=== PATIENT | male | born 1960 | race Caucasian/White ===

== ENCOUNTER 2020-10-18 16:05 | Emergency (ER) | payer MEDICAID ==
[~2020-10-18] VITALS: Ht 188 cm; Wt 174.4 kg
--- NOTE | ~2020-10-18 | EMS ---
[address] [place] [address] EMS Patient Care Report Name: ALLAN GAITAN Room: [facility] Leonarda#: [id number] Admission: 10/18/20 Attend Phys: Discharge: 10/18/20 Date of : 56 Report #: [id number] THIS REPORT FOR: //name// Report Transmitted: 10/20/2020 13:13 EMS Care Summary SCOTT العلي Incident [id number] @ 10/18/2020 15:11 Incident [id number] [place] [id number] Patient allan gaitan Male, 60 Years 1960 Patient Address [address] [place] [id number] Patient History Anxiety disorder, unspecified,Unspecified asthma,Gastro-Esophageal Reflux Disease (GERD),Edema, unspecified,Obesity, unspecified,Cellulitis, Patient Allergies , Patient Medications Acetaminophen, Celexa, Neurontin, Furosemide, Metolazone, Nystatin, Chief Complaint Pain-extremity lower Disposition Transported No Lights/[place] Dispatch Reason Sick Person Transported To [facility] Narrative [facility] responded to [facility] for a 61 year old male patient complaining of left leg pain. Upon arrival, the crew made contact with nursing staff who turned over pt paperwork and directed the crew to the [address] [address] EMS Patient Care Report Name: ALLAN GAITAN Room: [facility]#: [id number] Admission: 10/18/20 Attend Phys: Discharge: 10/18/20 Date of : 56 Report #: [id number] patient. The pt was alert and oriented with a GCS of 15, sitting in his wheelchair. The pt was able to ambulate with help from a walker from his wheelchair to the gurney. Pt seated himself on the gurney and was secured with all necessary straps. Pt states that he ahs a history of DVTs and has been having pain in his left leg for the past day. The facility was unable to perform a doppler which is why the pt needed to be transported to the hospital. Inside the ambulance, pt vital signs were monitored and pt history was recorded. Transport went without incident. After arriving at the receiving facility, the pt was moved inside to a room and transferred to the bed. Report was given to the receiving nurse and all required signatures were obtained before clearing the call. Initial Vitals @15:40Pain: 07/15, @15:50Pain: 07/15, @15:41P: 65,R: 18,BP: 152/91, @15:50P: 68,R: 18,BP: 124/99, @15:41GCS: 15, @15:50GCS: 15, Assessments @15:30MENTAL:SKIN:HEENT:LUNG SOUNDS:ABDOMEN:PELVIS//GI:EXTREMITIES:PULSE:NEURO: Impression Acute Pain, not elsewhere classified Timeline 15:30,Call Received 15:11,Dispatch Notified 15:11,Psap Call 15:11,Dispatched 15:11,En Route 15:26,On Scene 15:30,At Patient 15:40,Depart Scene 15:40,BP: / M,PULSE: ,RR: R,SPO2: Ox,ETCO2: ,BG: ,PAIN: 10,GCS: , 15:41,BP: 152/91 M,PULSE: 65,RR: 18 R,SPO2: Ox,ETCO2: ,BG: ,PAIN: ,GCS: , 15:41,BP: / M,PULSE: ,RR: R,SPO2: Ox,ETCO2: ,BG: ,PAIN: ,GCS: 15, 15:50,BP: / M,PULSE: ,RR: R,SPO2: Ox,ETCO2: ,BG: ,PAIN: 10,GCS: , 15:50,BP: 124/99 M,PULSE: 68,RR: 18 R,SPO2: Ox,ETCO2: ,BG: ,PAIN: ,GCS: , 15:50,BP: / M,PULSE: ,RR: R,SPO2: Ox,ETCO2: ,BG: ,PAIN: ,GCS: 15, 16:02,At Destination 16:30,[place] [address] EMS Patient Care Report Name: ALLAN GAITAN [facility] [id number] Admission: 10/18/20 Attend Phys: Discharge: 10/18/20 Date of : 56 Report #: [id number] Disclaimer v1.1 Copyright 202 Chef This EMS Care Summary contains data elements from the applicable legal record (which may be displayed differently). It is designed to provide pertinent information for the following purposes: continuity of care, clinical quality, and state data reporting. The complete legal record is available to ED staff and administrators of the receiving hospital in [employer]'s Patient Tracker. All data is provided "as is."
[2020-10-18] MEDS ORDERED: TYLENOL325 MG PO (16:17)
[2020-10-18] MEDS ORDERED: CELEXA 10 MG TA10 M1 PO (16:18)
[2020-10-18] MEDS ORDERED: BIOFREEZE118 ML TOP (16:18)
[2020-10-18] MEDS ORDERED: GABAPENTIN100 MG PO (16:18)
[2020-10-18] MEDS ORDERED: LASIX 40 MG TAB40 MG PO (16:19)
[2020-10-18] MEDS ORDERED: MOBIC7.5 MG PO (16:20)
[2020-10-18] MEDS ORDERED: METOLAZONE 2.52.5 M1 PO (16:20)
[2020-10-18] MEDS ORDERED: MIRALAX119 GM PO (16:20)
[2020-10-18] MEDS ORDERED: EFFER-K 20 MEQ20 ME1 PO (16:21)
[2020-10-18] MEDS ORDERED: SUPER THERAVIT1 EACH PO (16:21)
[2020-10-18] MEDS ORDERED: NYSTATIN1000000 UN TOP (16:21)
[2020-10-18] MEDS ORDERED: FLOMAX0.4 MG PO (16:22)
[2020-10-18 17:05] LABS: ABSOLUTE EOSINOPHILS 0.3 thou/uL (0.0-0.7); ABSOLUTE LYMPHOCYTES 1.4 thou/uL (0.8-5.3); ABSOLUTE MONOCYTES 0.5 thou/uL (0.0-1.2); ABSOLUTE NEUTROPHILS 2.1 thou/uL (1.6-8.1); BASOPHILS 0.2 %; EOSINOPHILS 7.5 %; HEMATOCRIT 40.9 % (42.0-52.0); HEMOGLOBIN 13.7 gm/dL (14.0-18.0); LYMPHOCYTES 31.8 %; MCHC 33.5 g/dL (28.0-37.0); MCV 92.6 fL (80.0-100.0); MONOCYTES 11.8 %; MPV 7.6 fl. (7.2-11.1); NUCLEATED RBCS 0 /100WBC; PLATELET COUNT* 216 thou/uL (150-400); POLYS 48.7 %; RBC 4.42 mil/uL (4.50-6.00); WBC 4.4 thou/uL (4.0-11.0)
[2020-10-18 17:10] LABS: CALCIUM 8.9 mg/dL (8.5-10.1); CREATININE 0.8 mg/dL (0.6-1.3); POTASSIUM 3.1 mmol/L (3.5-5.1)
[2020-10-18 17:19] LABS: APTT 26.5 Seconds (25.0-31.3); PROTIME 10.3 Seconds (9.20-11.50)
[2020-10-18 18:58] VITALS: BP 114/70
--- NOTE | 2020-10-19 13:38 | EKG ---
[place] [address] ELECTROCARDIOGRAM REPORT Name: ALLAN TOMLINSON [facility] [id number] Admission: 10/18/20 Attend Phys: Discharge: 10/18/20 Date of : 56 Date of Service: 10/18/20 1647 Report #: [id number] THIS REPORT FOR: //name// [facility] ED Test Date: 2020-10-18 Test Time: 16:47:18 Pat Name: ALLAN TOMLINSON Department: Room: Gender: Property Claim Rep: [facility] : 1960 Requested By: Radames Nunez Order Number: [id number] MD: Abimael Esquivel Measurements Intervals [place] Rate: 67 P: 15 [place]: 178 QRS: 51 QRSD: 100 T: 48 QT: 420 QTc: 444 Interpretive Statements Sinus rhythm Low voltage, precordial leads Probable anteroseptal infarct, old Baseline wander in lead(s) V1 No previous ECG available for comparison Electronically Signed On 10-19-2020 13:38:17 RESEARCH TECHNICIAN by Abimael Esquivel [email or web address] <ELECTRONICALLY SIGNED> By: Abimael Esquivel MD, FACC 10/19/20 1338 1647 1647 Abimael Esquivel MD, [facility] /EPI
== END 2020-10-18 19:52 | disposition home or self-care (01) ==
LOC: M.ERS 16:05
PROVIDERS: Nurse Practitioner Psychiatric/Mental Health
DX: U07.1 COVID-19 (principal); M79.662 Pain in left lower leg; E87.6 Hypokalemia; J45.909 Unspecified asthma, uncomplicated; I10 Essential (primary) hypertension; Z79.899 Other long term (current) drug therapy; Z88.0 Allergy status to penicillin; Z88.8 Allergy status to other drugs, medicaments and biological substances

== ENCOUNTER 2020-12-13 11:29 | Inpatient (IN) | payer MEDICAID ==
[~2020-12-13] VITALS: Ht 180.3 cm; Wt 149.7 kg
[~2020-12-13 11:29] MED LIST: BIOFREEZE118 ML TOP; CELEXA 10 MG TA10 M1 PO; EFFER-K 20 MEQ20 ME1 PO; FLOMAX0.4 MG PO; GABAPENTIN100 MG PO; LASIX 40 MG TAB40 MG PO; METOLAZONE 2.52.5 M1 PO; MIRALAX119 GM PO; MOBIC7.5 MG PO; NYSTATIN1000000 UN TOP; SUPER THERAVIT1 EACH PO; TYLENOL325 MG PO
[2020-12-13 11:30] VITALS: BP 109/59
[2020-12-13 11:53] LABS: HEMATOCRIT 44.4 % (42.0-52.0); HEMOGLOBIN 14.8 gm/dL (14.0-18.0); MCH 31.4 pg (26.0-34.0); MCHC 33.4 g/dL (28.0-37.0); MPV 9.6 fl. (7.2-11.1); NUCLEATED RBCS 0 /100WBC; PLATELET COUNT* 164 thou/uL (150-400); RBC 4.72 mil/uL (4.50-6.00); RDW-CV 12.6 % (10.5-14.5); WBC 18.3 thou/uL (4.0-11.0)
[2020-12-13 12:02] LABS: APTT 23.5 Seconds (25.0-31.3); INR 1.4; PROTIME 14.3 Seconds (9.20-11.50)
[2020-12-13 12:26] LABS: CALCIUM 8.7 mg/dL (8.5-10.1); CREATININE 1.3 mg/dL (0.6-1.3); POTASSIUM 3.8 mmol/L (3.5-5.1)
[2020-12-13 12:37] LABS: TOTAL BILIRUBIN 1.2 mg/dL (<0.1-1.0)
[2020-12-13 13:00] LABS: ABSOLUTE LYMPHOCYTES 0.7 thou/uL (0.8-5.3); ABSOLUTE MONOCYTES 0.2 thou/uL (0.0-1.2); ABSOLUTE NEUTROPHILS 17.4 thou/uL (1.6-8.1); PLATELET ESTIMATE ADEQUATE
[2020-12-13 14:09] VITALS: BP 105/55
[2020-12-13 14:39] VITALS: BP 109/63
[2020-12-13 16:40] VITALS: BP 127/69
--- NOTE | 2020-12-13 17:31 | EKG ---
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 : 1960 Requested By: Matthew Casanova Order Number: [id number] MD: Mustapha Washburn Measurements Intervals [place] Rate: 90 P: 28 [place]: 167 QRS: 52 QRSD: 89 T: 47 QT: 358 QTc: 438 Interpretive Statements Sinus rhythm Anterior infarct, old Compared to ECG 10/18/2020 16:47:18 No significant changes Electronically Signed On 12-13-2020 17:31:31 SKEIN STRAIGHTENER by Mustapha Wahsburn [email or web address] <ELECTRONICALLY SIGNED> By: Mustapha Washburn MD, [facility] 12/13/20 1731 1141 1141 Mustapha Washburn MD, [facility] /EPI
[2020-12-13 20:00] VITALS: BP 121/63
[2020-12-13 23:00] VITALS: BP 104/57
[2020-12-14] VITALS: BP 104/56
[2020-12-14 04:00] VITALS: BP 108/61
[2020-12-14 04:35] LABS: ABSOLUTE LYMPHOCYTES 0.3 thou/uL (0.8-5.3); ABSOLUTE MONOCYTES 0.3 thou/uL (0.0-1.2); ABSOLUTE NEUTROPHILS 18.3 thou/uL (1.6-8.1); BASOPHILS 0.2 %; EOSINOPHILS 0.1 %; HEMATOCRIT 38.1 % (42.0-52.0); LYMPHOCYTES 1.7 %; MCH 31.2 pg (26.0-34.0); MCHC 33.5 g/dL (28.0-37.0); MCV 92.9 fL (80.0-100.0); MONOCYTES 1.4 %; MPV 7.8 fl. (7.2-11.1); NUCLEATED RBCS 0 /100WBC; PLATELET COUNT* 198 thou/uL (150-400); POLYS 96.6 %; RDW-CV 12.7 % (10.5-14.5); WBC 18.9 thou/uL (4.0-11.0)
[2020-12-14 04:40] LABS: CALCIUM 8.3 mg/dL (8.5-10.1)
[2020-12-14 04:55] LABS: HEMOGLOBIN 12.8 gm/dL (14.0-18.0); POTASSIUM 2.9 mmol/L (3.5-5.1)
[2020-12-14 08:00] VITALS: BP 103/61
[2020-12-14 15:03] LABS: PCO2 42.5 mmHg (35.0-45.0); PO2 86.9 mmHg (75.0-100.0); pH 7.445 (7.340-7.450)
[2020-12-14 15:52] VITALS: BP 139/63
[2020-12-14 20:42] VITALS: BP 140/64
[2020-12-15 04:14] LABS: URINE BILIRUBIN NEGATIVE (Negative); URINE BLOOD 2+ (Negative); URINE CLARITY CLEAR; URINE COLOR DARK YELLOW; URINE GLUCOSE-RANDOM NEGATIVE (Negative); URINE KETONES NEGATIVE (Negative); URINE LEUKOCYTES-REFLEX NEGATIVE (Negative); URINE NITRITE-REFLEX NEGATIVE (Negative); URINE PROTEIN 2+ (Negative); URINE SPECIFIC GRAVITY 1.025 (1.005-1.030); URINE UROBILINOGEN 0.2 E.U./dl (0.2-1.0)
[2020-12-15 04:51] LABS: ABSOLUTE LYMPHOCYTES 0.5 thou/uL (0.8-5.3); ABSOLUTE MONOCYTES 0.4 thou/uL (0.0-1.2); ABSOLUTE NEUTROPHILS 11.9 thou/uL (1.6-8.1); BASOPHILS 0.2 %; EOSINOPHILS 0.1 %; HEMATOCRIT 36.8 % (42.0-52.0); HEMOGLOBIN 12.4 gm/dL (14.0-18.0); LYMPHOCYTES 3.6 %; MCH 31.3 pg (26.0-34.0); MCHC 33.7 g/dL (28.0-37.0); MCV 92.9 fL (80.0-100.0); MONOCYTES 3.2 %; MPV 8.4 fl. (7.2-11.1); NUCLEATED RBCS 0 /100WBC; PLATELET COUNT* 176 thou/uL (150-400); POLYS 92.9 %; RBC 3.96 mil/uL (4.50-6.00); RDW-CV 12.5 % (10.5-14.5); WBC 12.8 thou/uL (4.0-11.0)
[2020-12-15 05:15] LABS: ALBUMIN 1.9 g/dL (3.4-5.0); CALCIUM 8.8 mg/dL (8.5-10.1); CREATININE 0.8 mg/dL (0.6-1.3); POTASSIUM 3.9 mmol/L (3.5-5.1); TOTAL BILIRUBIN 0.8 mg/dL (<0.1-1.0); TOTAL PROTEIN 6.1 g/dL (6.4-8.2)
[2020-12-15 05:25] LABS: CASTS None Seen /LPF (None Seen); CRYSTALS None Seen /LPF (None Seen); MUCUS 0-3 Light strn/LPF (None Seen); SQUAMOUS 0-3 Few /LPF (0-3); URINE RBC 3-10 Few /HPF (0-2); URINE WBC-REFLEX 0-5 Rare /HPF (0-5)
[2020-12-15 15:44] VITALS: BP 115/67
[2020-12-15 20:00] VITALS: BP 112/64
[2020-12-16 07:20] VITALS: BP 125/79
[2020-12-16 11:40] LABS: ABSOLUTE EOSINOPHILS 0.1 thou/uL (0.0-0.7); ABSOLUTE LYMPHOCYTES 0.9 thou/uL (0.8-5.3); ABSOLUTE MONOCYTES 0.8 thou/uL (0.0-1.2); ABSOLUTE NEUTROPHILS 10.2 thou/uL (1.6-8.1); BASOPHILS 0.3 %; EOSINOPHILS 1.2 %; HEMOGLOBIN 11.8 gm/dL (14.0-18.0); LYMPHOCYTES 7.3 %; MCH 30.8 pg (26.0-34.0); MCHC 32.9 g/dL (28.0-37.0); MCV 93.6 fL (80.0-100.0); MONOCYTES 6.3 %; MPV 9.6 fl. (7.2-11.1); NUCLEATED RBCS 0 /100WBC; PLATELET COUNT* 213 thou/uL (150-400); POLYS 84.9 %; RBC 3.85 mil/uL (4.50-6.00)
[2020-12-16 11:55] LABS: ALBUMIN 1.9 g/dL (3.4-5.0); CALCIUM 7.7 mg/dL (8.5-10.1); CREATININE 0.7 mg/dL (0.6-1.3); POTASSIUM 3.8 mmol/L (3.5-5.1); TOTAL BILIRUBIN 0.8 mg/dL (<0.1-1.0); TOTAL PROTEIN 5.5 g/dL (6.4-8.2)
[2020-12-16 16:16] VITALS: BP 127/81
[2020-12-16 20:00] VITALS: BP 129/70
[2020-12-17 04:09] LABS: ABSOLUTE EOSINOPHILS 0.6 thou/uL (0.0-0.7); ABSOLUTE LYMPHOCYTES 1.1 thou/uL (0.8-5.3); ABSOLUTE NEUTROPHILS 6.9 thou/uL (1.6-8.1); BASOPHILS 0.4 %; EOSINOPHILS 6.4 %; HEMATOCRIT 36.7 % (42.0-52.0); HEMOGLOBIN 12.2 gm/dL (14.0-18.0); LYMPHOCYTES 11.1 %; MCH 30.8 pg (26.0-34.0); MCHC 33.2 g/dL (28.0-37.0); MCV 92.9 fL (80.0-100.0); MONOCYTES 10.2 %; MPV 8.2 fl. (7.2-11.1); NUCLEATED RBCS 0 /100WBC; PLATELET COUNT* 222 thou/uL (150-400); POLYS 71.9 %; RBC 3.95 mil/uL (4.50-6.00); RDW-CV 13.1 % (10.5-14.5); WBC 9.6 thou/uL (4.0-11.0)
[2020-12-17 04:15] LABS: ALBUMIN 1.7 g/dL (3.4-5.0); CALCIUM 8.1 mg/dL (8.5-10.1); CREATININE 0.7 mg/dL (0.6-1.3); POTASSIUM 3.5 mmol/L (3.5-5.1); TOTAL BILIRUBIN 0.6 mg/dL (<0.1-1.0); TOTAL PROTEIN 6.1 g/dL (6.4-8.2)
[2020-12-17 07:25] VITALS: BP 113/69
[2020-12-17 16:00] VITALS: BP 118/68
[2020-12-17 19:30] VITALS: BP 135/72; BP 157/70
[2020-12-18 05:48] LABS: HEMOGLOBIN 12.8 gm/dL (14.0-18.0); MCH 30.9 pg (26.0-34.0); MCHC 33.5 g/dL (28.0-37.0); MCV 92.1 fL (80.0-100.0); MPV 7.7 fl. (7.2-11.1); NUCLEATED RBCS 0 /100WBC; PLATELET COUNT* 259 thou/uL (150-400); RBC 4.13 mil/uL (4.50-6.00); RDW-CV 13.3 % (10.5-14.5); WBC 8.5 thou/uL (4.0-11.0)
[2020-12-18 05:59] LABS: PREALBUMIN 11.1 mg/dL (18.0-35.7)
[2020-12-18 06:04] LABS: ALBUMIN 1.8 g/dL (3.4-5.0); CALCIUM 7.5 mg/dL (8.5-10.1); CREATININE 0.7 mg/dL (0.6-1.3); POTASSIUM 3.9 mmol/L (3.5-5.1); TOTAL BILIRUBIN 0.7 mg/dL (<0.1-1.0)
[2020-12-18 07:38] LABS: ABSOLUTE EOSINOPHILS 0.8 thou/uL (0.0-0.7); ABSOLUTE LYMPHOCYTES 1.4 thou/uL (0.8-5.3); ABSOLUTE MONOCYTES 0.8 thou/uL (0.0-1.2); ABSOLUTE NEUTROPHILS 5.6 thou/uL (1.6-8.1); METAMYELOCYTES 2 %; PLATELET ESTIMATE ADEQUATE
[2020-12-18 07:40] LABS: TOXIC GRANULATION Occasional
[2020-12-18] MEDS ORDERED: CLEOCIN HCL300 MG PO (08:06)
[2020-12-18] MEDS ORDERED: KEFLEX500 M1 PO (08:07)
[2020-12-18 08:45] VITALS: BP 133/72
== END 2020-12-18 15:08 | DRG 872 ==
LOC: M.ERS 11:29 → M.TBA-ER 11:48 → M.ORTHSURG 14:24
PROVIDERS: Family Medicine; ADMIT Internal Medicine; ATTEND Internal Medicine
DX: A41.9 Sepsis, unspecified organism (principal); L03.116 Cellulitis of left lower limb; Z68.42 Body mass index [BMI] 45.0-49.9, adult; J45.909 Unspecified asthma, uncomplicated; I10 Essential (primary) hypertension; E66.01 Morbid (severe) obesity due to excess calories; G47.33 Obstructive sleep apnea (adult) (pediatric); G89.29 Other chronic pain; I89.0 Lymphedema, not elsewhere classified; Z20.822 Contact with and (suspected) exposure to COVID-19; Z86.718 Personal history of other venous thrombosis and embolism; Z88.1 Allergy status to other antibiotic agents; Z88.0 Allergy status to penicillin; Z86.16 Personal history of COVID-19; Z88.8 Allergy status to other drugs, medicaments and biological substances; Z91.018 Allergy to other foods; Z79.899 Other long term (current) drug therapy